=== PATIENT | male | born 1980 ===

== ENCOUNTER 2020-10-14 14:30 | Emergency (ER) | payer OTHER, SELFPAY ==
--- NOTE | ~2020-10-14 | XR_ITS ---
EXAMINATION: XR CHEST CLINICAL INFORMATION: Dizziness COMPARISON: Chest 04/19/2011 TECHNIQUE: Frontal view of the chest was obtained. FINDINGS: No significant abnormality is noted involving the heart, lungs, mediastinum, bony thorax or soft tissues. XR/XR chest 1V IMPRESSION: Unremarkable chest examination.
[2020-10-14 15:18] VITALS: BP 111/77; PULSE 108; RESP 18; TEMP 36.4; O2SAT 96; BMI 30.7
--- NOTE | 2020-10-14 15:24 | ECG_ITS ---
Test Reason : CHEST PAIN Blood Pressure : / mmHG Vent. Rate : 093 BPM Atrial Rate : 093 BPM P-R Int : 138 ms QRS Dur : 094 ms QT Int : 352 ms P-R-T Axes : 059 091 033 degrees QTc Int : 437 ms Normal sinus rhythm Rightward axis Borderline ECG When compared with ECG of 07-MAR-2012 15:10, Vent. rate has increased BY 38 BPM QT has lengthened Referred By: Generic ED Physician Electronically Signed By:Delta Stephens
[2020-10-14 16:11] VITALS: BP 113/79; PULSE 89; RESP 16; TEMP 36.7; O2SAT 98
[2020-10-14 16:15] LABS: MANUAL DIFF FLAG NO
[2020-10-14 16:16] LABS: Basophils Percent Auto 0.4 % (0-2); Hematocrit 43.9 % (42-52); Hemoglobin 14.7 g/dl (14.0-18.0); Imm Gran Abs Auto 0.04 X10*3/uL (0.00-0.03); Imm Gran Pct Auto 0.4 % (0.0-0.4); Lymphocytes Absolute Auto 1.3 X10*3/uL (1.2-4.9); Lymphocytes Percent Auto 14.2 % (20-40); Mean Corpuscular HGB Conc 33.5 g/dl (31.0-36.0); Mean Corpuscular Hemoglobin 28.1 pg (27.0-33.0); Mean Corpuscular Volume 83.8 fL (80-98); Mean Platelet Volume 11.5 fL (9.4-12.4); Monocytes Absolute Auto 0.5 X10*3/uL (0.1-1.2); Monocytes Percent Auto 5.7 % (2-11); Neutrophils Absolute Auto 7.3 X10*3/uL (2.0-8.3); Neutrophils Percent Auto 79.3 % (45-73); Platelet Count 204 X10*3/uL (160-400); Red Blood Count 5.24 X10*6/uL (4.60-5.80); Red Cell Distribution Width 12.6 % (11.0-16.0); White Blood Count 9.2 X10*3/uL (4.8-10.8)
[2020-10-14] MEDS: 0.9 % Sodium Chloride 1,000 ML 999 ML IV ×4 (16:28→17:52)
[2020-10-14 16:40] LABS: INTERNATIONAL NORM RATIO 1.1 (0.9-1.1); Prothrombin Time 12.2 SEC (9.9-13.0)
[2020-10-14 16:43] LABS: Partial Thromboplastin Time 37.7 SEC (24.1-38.0)
[2020-10-14 16:51] LABS: Anion Gap 17 (12-20); Blood Urea Nitrogen 9 mg/dL (9-16); Calcium 9.2 mg/dL (8.4-10.2); Carbon Dioxide 24 mmol/L (22-29); Chloride 99 mmol/L (96-108); Creatinine Clr Calc Pharmacy 98.9; Estimated Glomerular Filt Rate > 60; Glucose Random 641 mg/dL (60-115); Potassium 4.4 mmol/L (3.3-5.1); Sodium 136 mmol/L (135-145)
[2020-10-14 16:57] LABS: Troponin-I High Sensitivity < 3.5 ng/L (<3.5-35.0)
[2020-10-14 16:58] LABS: Acetone, serum QL Negative (Negative)
--- NOTE | 2020-10-14 17:23 | ED.DIZZY ---
HPI - Dizziness General Chief Complaint: Dizziness Stated Complaint: hbs, dizziness Time Seen by Provider: 10/14/20 16:10 Source: patient Mode of arrival: ambulatory Limitations: no limitations History of Present Illness HPI Narrative: Patient presents to the ED for dizziness and hyperglycemia. Patient admits to missing insulin doses past couple days. Patient denies any chest pain, shortness of breath, coughing, fever, chills, slurred speech, facial droop, paralysis of extremities, or loss of vision. Related Data Allergies Allergy/AdvReac Type Severity Reaction Status Date / Time onion [Onion] Allergy Unknown ITCHING Verified 10/14/20 15:17 [email or web address] Allergy Hives Verified 10/14/20 15:17 SEAFOOD Allergy Unknown ITCHING Uncoded 12/17/19 16:53 Review of Systems Review of Systems: Yes all other systems are reviewed and are negative Constitutional: Constitutional: Reports as per HPI and Reports no additional constitutional complaints Eyes: Eyes: Reports as per HPI and Reports no additional eye complaints ENT: Reports system reviewed and no additional complaints, except as documented and Reports as per HPI Cardiovascular: Cardiovascular: Reports as per HPI and Reports no additional cardiovascular complaints Respiratory: Respiratory: Reports as per HPI and Reports no additional respiratory complaints Gastrointestinal: Gastrointestinal: Reports as per HPI and Reports no additional gastrointestinal complaints Genitourinary: Genitourinary: Reports no additional male genitourinary complaints and Reports as per HPI Musculoskeletal: Musculoskeletal: Reports no additional musculoskeletal complaints and Reports as per HPI Neurologic: Reports system reviewed and no additional complaints, except as documented and Reports as per HPI Psychiatric: Psychiatric: Reports no additional psychiatric complaints and Reports as per HPI Endocrine: Endocrine: Reports no additional endocrine complaints and Reports as per HPI Comments: Dizziness [facility] Past Medical History Medical History (Updated 10/14/20 @ 19:16 by RAIN Snider) Asthma Diabetes Social History Social History Alcohol intake: never Patient Tobacco Use Status: Never used Tobacco Use of substances other than those prescribed or required for medical reasons: No Advance Directives: No Advance Directives Information Provided: No Physical Exam Vital Signs: Vital Signs: Last Vital Signs Temp 98.0 F 10/14/20 16:11 Pulse 89 10/14/20 16:11 Resp 16 10/14/20 16:11 BP 113/79 10/14/20 16:11 Pulse Ox 98 10/14/20 16:11 Body Mass Index 30.7 Const: General: cooperative, healthy appearing, comfortable, no acute distress, well developed, alert, awake and Physically active; No lethargic Orientation/consciousness: patient oriented x3 and No lethargic HENMT: Head: Yes normal to inspection, Yes No palpable skull fracture present, Yes normocephalic and Yes atraumatic Eyes: General: appearance normal, both eyes and all related structures Neck: Neck: Yes normal visual inspection, Yes full ROM, Yes no lymphadenopathy, Yes no meningeal signs, Yes trachea midline, Yes supple and No tender Chest: Chest palpation & inspection: normal inspection of the chest and normal palpation of entire chest wall Resp: Effort & Inspection: normal respiratory effort and able to speak in complete sentences Auscultation: clear to auscultation bilaterally Cardio: Jugular venous distension: no JVD Heart sounds: S1 normal heart sound present and S2 normal heart sound present GI: Inspection: Yes normal to inspection and No abdominal wall ecchymosis Palpation (GI): Soft to palpation, not firm, nontender, no guarding and not rigid : General: No CVA tenderness and Yes no CVA tenderness Back/Spine/Pelvis: Back: no CVA tenderness, No CVA tenderness and No back tenderness Skin: General skin exam: no rashes or lesions noted and elasticity normal Neuro: Other: Negative facial droop. Negative slurred speech. Negative pronator drift. All extremities equal strength 5+. [id number] rapid head movement intact. Negative Romberg General: patient oriented x3, gait normal, no meningeal signs and CN's II-XI intact bilaterally Cranial nerves: Yes CN's II-XII intact bilaterally Extrem: General: Yes normal to inspection and Yes full ROM Psych: Appearance: grossly normal, well kempt and not disheveled Course Course Course Narrative: Patient will have medical evaluation evaluate for DKA. Reevaluation(s) Reevaluation #1: Patient not in DKA. But patient hyperglycemic at glucose 641. Troponin negative. EKG negative. Will give 4 L of fluids and IV insulin. Time: 17:30 Reevaluation #2: Patient's hypoglycemia resolved. Patient is safe for discharge. Patient educated and being compliant with insulin. Time: 19:14 MDM - Dizziness MDM Narrative Medical decision making narrative: Hyperglycemia Lab Data Result diagrams: 10/14/20 16:11 10/14/20 16:11 Labs: Lab Results 10/14/20 10/14/20 10/14/20 Range/Units 16:11 16:11 16:11 WBC 9.2 (4.8-10.8) X10*3/uL RBC 5.24 (4.60-5.80) X10*6/uL Hgb 14.7 (14.0-18.0) g/dl Hct 43.9 (42-52) % MCV 83.8 (80-98) fL MCH 28.1 (27.0-33.0) pg MCHC 33.5 (31.0-36.0) g/dl RDW 12.6 (11.0-16.0) % Plt Count 204 (160-400) X10*3/uL MPV 11.5 (9.4-12.4) fL Immature Gran % (Auto) 0.4 (0.0-0.4) % Neut % (Auto) 79.3 H (45-73) % Lymph % (Auto) 14.2 L (20-40) % Karnes % (Auto) 5.7 (2-11) % Eos % (Auto) 0.0 (0-4) % Baso % (Auto) 0.4 (0-2) % Lymph # (Auto) 1.3 (1.2-4.9) X10*3/uL Karnes # (Auto) 0.5 (0.1-1.2) X10*3/uL Eos # (Auto) 0.0 (0.0-0.4) X10*3/uL Baso # (Auto) 0.0 (0.0-0.2) X10*3/uL Abs Immat Gran (auto) 0.04 H (0.00-0.03) X10*3/uL Absolute Neuts (auto) 7.3 (2.0-8.3) X10*3/uL Absolute Nucleated RBC 0.000 (0.0-0.012) X10*3/uL Nucleated RBC % (auto) 0.0 (0.0-0.2) /100WBC PT (9.9-13.0) SEC INR (0.9-1.1) APTT (24.1-38.0) SEC Sodium 136 (135-145) mmol/L Potassium 4.4 (3.3-5.1) mmol/L Chloride 99 (96-108) mmol/L Carbon Dioxide 24 (22-29) mmol/L Anion Gap 17 (12-20) BUN 9 (9-16) mg/dL Creatinine 1.17 (0.5-1.4) mg/dL Estim Creat Clear Calc 98.9 Estimated GFR > 60 POC Glucose (60-115) mg/dL Random Glucose 641 H* (60-115) mg/dL Calcium 9.2 (8.4-10.2) mg/dL Troponin I High Sens < 3.5 (<3.5-35.0) ng/L Urine Color Urine Appearance Urine pH (5.0-8.0) Ur Specific [place] (1.005-1.025) Urine Protein (NEG-TRACE) MG/DL Urine Glucose (UA) (NEG) MG/DL Urine Ketones (NEG) MG/DL Urine Blood (NEG) Urine Nitrite (NEG) Ur Leukocyte Esterase (NEG) Urine RBC (0) /HPF Urine WBC (0-4) /HPF Ur Squamous Epith Cells /LPF Urine Bacteria /LPF Acetone, Qual (Negative) 10/14/20 10/14/20 10/14/20 Range/Units 16:26 16:26 17:49 WBC (4.8-10.8) X10*3/uL RBC (4.60-5.80) X10*6/uL Hgb (14.0-18.0) g/dl Hct (42-52) % MCV (80-98) fL MCH (27.0-33.0) pg MCHC (31.0-36.0) g/dl RDW (11.0-16.0) % Plt Count (160-400) X10*3/uL MPV (9.4-12.4) fL Immature Gran % (Auto) (0.0-0.4) % Neut % (Auto) (45-73) % Lymph % (Auto) (20-40) % Karnes % (Auto) (2-11) % Eos % (Auto) (0-4) % Baso % (Auto) (0-2) % Lymph # (Auto) (1.2-4.9) X10*3/uL Karnes # (Auto) (0.1-1.2) X10*3/uL Eos # (Auto) (0.0-0.4) X10*3/uL Baso # (Auto) (0.0-0.2) X10*3/uL Abs Immat Gran (auto) (0.00-0.03) X10*3/uL Absolute Neuts (auto) (2.0-8.3) X10*3/uL Absolute Nucleated RBC (0.0-0.012) X10*3/uL Nucleated RBC % (auto) (0.0-0.2) /100WBC PT 12.2 (9.9-13.0) SEC INR 1.1 (0.9-1.1) APTT 37.7 (24.1-38.0) SEC Sodium (135-145) mmol/L Potassium (3.3-5.1) mmol/L Chloride (96-108) mmol/L Carbon Dioxide (22-29) mmol/L Anion Gap (12-20) BUN (9-16) mg/dL Creatinine (0.5-1.4) mg/dL Estim Creat Clear Calc Estimated GFR POC Glucose 340 H (60-115) mg/dL Random Glucose (60-115) mg/dL Calcium (8.4-10.2) mg/dL Troponin I High Sens (<3.5-35.0) ng/L Urine Color Urine Appearance Urine pH (5.0-8.0) Ur Specific [place] (1.005-1.025) Urine Protein (NEG-TRACE) MG/DL Urine Glucose (UA) (NEG) MG/DL Urine Ketones (NEG) MG/DL Urine Blood (NEG) Urine Nitrite (NEG) Ur Leukocyte Esterase (NEG) Urine RBC (0) /HPF Urine WBC (0-4) /HPF Ur Squamous Epith Cells /LPF Urine Bacteria /LPF Acetone, Qual Negative (Negative) 10/14/20 10/14/20 Range/Units 18:34 18:46 WBC (4.8-10.8) X10*3/uL RBC (4.60-5.80) X10*6/uL Hgb (14.0-18.0) g/dl Hct (42-52) % MCV (80-98) fL MCH (27.0-33.0) pg MCHC (31.0-36.0) g/dl RDW (11.0-16.0) % Plt Count (160-400) X10*3/uL MPV (9.4-12.4) fL Immature Gran % (Auto) (0.0-0.4) % Neut % (Auto) (45-73) % Lymph % (Auto) (20-40) % Karnes % (Auto) (2-11) % Eos % (Auto) (0-4) % Baso % (Auto) (0-2) % Lymph # (Auto) (1.2-4.9) X10*3/uL Karnes # (Auto) (0.1-1.2) X10*3/uL Eos # (Auto) (0.0-0.4) X10*3/uL Baso # (Auto) (0.0-0.2) X10*3/uL Abs Immat Gran (auto) (0.00-0.03) X10*3/uL Absolute Neuts (auto) (2.0-8.3) X10*3/uL Absolute Nucleated RBC (0.0-0.012) X10*3/uL Nucleated RBC % (auto) (0.0-0.2) /100WBC PT (9.9-13.0) SEC INR (0.9-1.1) APTT (24.1-38.0) SEC Sodium (135-145) mmol/L Potassium (3.3-5.1) mmol/L Chloride (96-108) mmol/L Carbon Dioxide (22-29) mmol/L Anion Gap (12-20) BUN (9-16) mg/dL Creatinine (0.5-1.4) mg/dL Estim Creat Clear Calc Estimated GFR POC Glucose 269 H (60-115) mg/dL Random Glucose (60-115) mg/dL Calcium (8.4-10.2) mg/dL Troponin I High Sens (<3.5-35.0) ng/L Urine Color COLORLESS Urine Appearance CLEAR Urine pH 5.5 (5.0-8.0) Ur Specific [place] 1.015 (1.005-1.025) Urine Protein NEG (NEG-TRACE) MG/DL Urine Glucose (UA) >=1000 H (NEG) MG/DL Urine Ketones NEG (NEG) MG/DL Urine Blood NEG (NEG) Urine Nitrite NEG (NEG) Ur Leukocyte Esterase NEG (NEG) Urine RBC 1-4 (0) /HPF Urine WBC 0-2 (0-4) /HPF Ur Squamous Epith Cells NONE /LPF Urine Bacteria NONE /LPF Acetone, Qual (Negative) ECG Data Interpretation: Normal sinus rhythm. Ventricular rate 93. Pr interval 138. QRS 94. QTC 4 37. Negative STEMI Discharge Plan Discharge Clinical Impression: Acute hyperglycemia Patient Disposition: Home, Self-Care Instructions: Diabetic Hyperglycemia (ED) Additional Instructions: Return to the ED for any abdominal pain, nausea, vomiting, fever, chills, chest pain, shortness of breath, dizziness, headache, slurred speech, loss of vision, paralysis of extremities, or any other concerning symptoms. Your hyperglycemia resolved. UA not in DKA. Urine negative for infection. EKG and troponin negative for heart attack. Your electrolytes came back normal Print Language: Thai
[2020-10-14] MEDS: Insulin Regular, Human 100 UNIT/ML 3 ML VIAL 10 UNIT IVPUSH (17:52)
[2020-10-14 17:53] LABS: Glucose, Whole Blood 340 mg/dL (60-115)
[2020-10-14 18:49] LABS: Glucose, Whole Blood 269 mg/dL (60-115)
[2020-10-14 18:55] LABS: Glucose Urine UA >=1000 MG/DL (NEG); Leukocyte Esterase Urine NEG (NEG); Nitrite Urine NEG (NEG); PH 5.5 (5.0-8.0); Specific Gravity - Urine 1.015 (1.005-1.025); Urine Blood NEG (NEG); Urine Ketones NEG (NEG); Urine Protein NEG (NEG-TRACE)
[2020-10-14 18:56] LABS: Appearance Urine CLEAR; Color Urine COLORLESS
[2020-10-14 19:09] LABS: WBC Urine 0-2 /HPF (0-4)
== END 2020-10-14 19:30 | disposition home or self-care (01) ==
PROVIDERS: Physician Assistant; Emergency Provider Emergency Medicine
DX: E11.65 Type 2 diabetes mellitus with hyperglycemia (principal); Z79.4 Long term (current) use of insulin; Z91.14 Patient's other noncompliance with medication regimen
CPT/HCPCS: 36415; 71045; 80048; 81001; 82009; 82947; 84484; 85025; 85610; 85730; 93005; 96361; 96374; 99284; 99285

== ENCOUNTER 2022-04-26 21:01 | Emergency (ER) | payer OTHER, SELFPAY ==
--- NOTE | ~2022-04-26 | XR_ITS ---
EXAMINATION: XR LUMBOSACRAL SPINE CLINICAL INFORMATION: Reason for Exam s/p fall COMPARISON: Lumbar spine radiographs 01/25/2012 TECHNIQUE: 3 views of the lumbar spine FINDINGS: 5 nonrib-bearing lumbar-type vertebral bodies. Vertebral body heights are maintained. Alignment is maintained. Mild multilevel degenerative disc disease with minimal loss of disc space height, facet arthropathy and disc osteophyte complexes. Paravertebral soft tissues are unremarkable. XR/XR lumbar spine 2-3V IMPRESSION: * No acute osseous abnormality. Mild spondylosis of the lumbar spine, as above detailed.
[2022-04-26 21:10] VITALS: BP 125/77; PULSE 78; RESP 18; TEMP 36.4; O2SAT 95; BMI 30.7
--- NOTE | 2022-04-26 22:42 | ED.BACK ---
HPI - Back Pain/Injury General Chief Complaint: Back Pain/Injury Stated Complaint: lower back pain Time Seen by Provider: 04/26/22 22:42 Source: patient Mode of arrival: ambulatory Limitations: no limitations History of Present Illness HPI Narrative: Patient history of lower back pain status post steroid injection about 3 years ago since then been doing fine not requiring any pain medication. Today patient's sleep while getting of the car and had the lower back again complaining of increased pain difficulty in ambulation no paresthesia or weakness of the leg no bladder or bowel involvement Related Data Previous Rx's Medication Instructions Recorded cyclobenzaprine 10 mg tablet 10 mg PO Q8H #20 tabs 04/27/22 oxycodone-acetaminophen 5 mg-325 1 tab PO Q6H PRN pain #20 tabs 04/27/22 mg tablet (Percocet) prednisone 20 mg tablet 40 mg PO DAILY #10 tabs 04/27/22 Allergies Allergy/AdvReac Type Severity Reaction Status Date / Time onion [Onion] Allergy Unknown ITCHING Verified 10/14/20 15:17 [email or web address] Allergy Hives Verified 10/14/20 15:17 SEAFOOD Allergy Unknown ITCHING Uncoded 12/17/19 16:53 Review of Systems Review of Systems: Yes all other systems are reviewed and are negative [facility] Past Medical History Medical History Asthma Diabetes Social History Social History Alcohol intake: never Patient Tobacco Use Status: Never used Tobacco Advance Directives: No Advance Directives Information Provided: No Physical Exam Vital Signs: Vital Signs: Last Vital Signs Temp 97.7 F 04/27/22 01:39 Pulse 67 04/27/22 01:39 Resp 18 04/27/22 01:39 BP 111/63 04/27/22 01:39 Pulse Ox 97 04/27/22 01:39 O2 Del Method 04/27/22 01:39 BMI result Body Mass Index 30.7 Appearance: Alert. Oriented X3. No acute distress. Eyes: PERRLA, No Nystagmus ENT: Pharynx normal. Oral Mucosa moist Neck: Normal inspection. Neck supple. CVS: Normal heart rate and rhythm. Pulses normal. Respiratory: No respiratory distress. Equal air entry bilateral, no wheezing/rales/rhonchi Abdomen: Soft and nontender. Bowel sounds are present, no mass palpable, no CVA tenderness Skin: Skin warm and dry. Normal skin color. Normal skin turgor. Back: diffuse L umbar spine diffuse tenderness++ Extremities: No lower extremity edema. No calf tenderness Neuro: Oriented X 3. No motor deficit. Medications Administered Discontinued Medications Generic Name Dose Route Start Last Admin Trade Name Freq PRN Reason Stop Dose Admin Cyclobenzaprine HCl 10 mg 04/27/22 00:31 04/27/22 00:50 Cyclobenzaprine Hcl 10 Mg Tablet PO 04/27/22 00:32 10 mg ONCE ONE Administration Dexamethasone Sodium Phosphate 10 mg 04/27/22 00:31 04/27/22 00:49 Dexamethasone Sod Phosphate 10 Mg/Ml Vial IVPUSH 04/27/22 00:32 10 mg ONCE ONE Administration Ketorolac Tromethamine 30 mg 04/26/22 23:07 04/26/22 23:16 Ketorolac Tromethamine 30 Mg/Ml Vial IVPUSH 04/26/22 23:08 30 mg ONCE ONE Administration Morphine Sulfate 4 mg 04/26/22 23:07 04/26/22 23:17 Morphine Sulfate 4 Mg/Ml Cartridge IVPUSH 04/26/22 23:08 4 mg ONCE ONE Administration Protocol Ondansetron HCl 4 mg 04/26/22 23:07 04/26/22 23:17 Ondansetron Hcl 4 Mg/2 Ml Vial IVPUSH 04/26/22 23:08 4 mg ONCE ONE Administration Oxycodone HCl 10 mg 04/27/22 00:31 04/27/22 00:50 Oxycodone Hcl Immed Release 5 Mg Tablet PO 04/27/22 00:32 10 mg ONCE ONE Administration Discharge Plan Discharge Clinical Impression: Strain of lumbar region Patient Disposition: Home, Self-Care Instructions: Acute Low Back Pain (ED) Additional Instructions: Take pain medication muscle relaxants advised Apply ice pack Follow with PCP Prescriptions: New cyclobenzaprine 10 mg tablet 10 mg PO Q8H Qty: 20 0RF prednisone 20 mg tablet 40 mg PO DAILY Qty: 10 0RF oxycodone-acetaminophen [Percocet] 5-325 mg tablet 1 tab PO Q6H PRN (Reason: pain) Qty: 20 0RF Rx Instructions: Partial Fill upon patient request. Stand Alone Forms: Work/School Release Discharge Date/Time: 04/27/22 01:57
[2022-04-26 23:04] VITALS: BP 114/71; PULSE 66; RESP 12; TEMP 36.4; O2SAT 98
--- NOTE | 2022-04-26 23:04 | PC.NURSE ---
Pt aox4. Reports getting out of the car and hearing a pop on the back. Pt reports not falling. Pain 01/08. VSEugenia. at bedside.
[2022-04-26] MEDS: Ketorolac Tromethamine 30 MG/ML VIAL IVPUSH (23:16)
[2022-04-26] MEDS: Morphine Sulfate 4 MG/ML CARTRIDGE IVPUSH (23:17)
[2022-04-26] MEDS: ondansetron HCL 4 MG/2 ML VIAL IVPUSH (23:17)
[2022-04-27] MEDS: dexAMETHasone sod phosphate 10 MG/ML VIAL IVPUSH (00:49)
[2022-04-27] MEDS: oxyCODONE HCl Immed Release 5 MG TABLET 10 MG PO (00:50)
[2022-04-27] MEDS: Cyclobenzaprine HCl 10 MG TABLET PO (00:50)
[2022-04-27 01:39] VITALS: BP 111/63; PULSE 67; RESP 18; TEMP 36.5; O2SAT 97
--- NOTE | 2022-04-27 01:56 | PC.NURSE ---
Pt aox4 in no apparent distress. Discharge instructions reviewed with pt. Pt verbalizes understanding.
== END 2022-04-27 01:57 | disposition home or self-care (01) ==
PROVIDERS: Emergency Provider Internal Medicine
DX: M54.50 Low back pain, unspecified (principal); Z79.899 Other long term (current) drug therapy
CPT/HCPCS: 72100; 96374; 96375; 99284; J1100; J1885; J2270; J2405

== ENCOUNTER 2022-04-28 22:44 | Emergency (ER) | payer OTHER, SELFPAY ==
[2022-04-28 22:49] VITALS: BP 143/80; PULSE 79; RESP 18; TEMP 36.6; O2SAT 97; BMI 30.7
--- NOTE | 2022-04-28 23:08 | ED.BACK ---
HPI - Back Pain/Injury General Chief Complaint: Back Pain/Injury Stated Complaint: Lower back pain Time Seen by Provider: 04/28/22 23:08 Source: patient Mode of arrival: ambulatory Limitations: no limitations History of Present Illness HPI Narrative: 42-year-old male presents for several weeks of back pain, was evaluated on with a negative workup. Patient was given prednisone, oxycodone and Flexeril, which he has been using, stating that it has not alleviated his pain. Patient is requesting an MRI, and feels that he cannot function properly at work because of the pain. MD elicited complaint: back pain and back injury Onset (ago): week(s) Timing: constant Severity: moderate Similar Symptoms Previously: Yes Quality: aching and spasming Location: lumbar spine Exacerbating factors: movement, walking and lifting Relieving factors: none Associated symptoms: denies other symptoms Treatments prior to arrival: NSAIDS and prescription analgesics Work related injury: No Related Data Previous Rx's Medication Instructions Recorded cyclobenzaprine 10 mg tablet 10 mg PO Q8H #20 tabs 04/27/22 oxycodone-acetaminophen 5 mg-325 1 tab PO Q6H PRN pain #20 tabs 04/27/22 mg tablet (Percocet) prednisone 20 mg tablet 40 mg PO DAILY #10 tabs 04/27/22 Allergies Allergy/AdvReac Type Severity Reaction Status Date / Time onion [Onion] Allergy Unknown ITCHING Verified 10/14/20 15:17 [email or web address] Allergy Hives Verified 10/14/20 15:17 SEAFOOD Allergy Unknown ITCHING Uncoded 12/17/19 16:53 Review of Systems Review of Systems: Constitutional: No Fever, No Chills Cardiovascular: No Chest Pain, No SOB Respiratory: No Cough, No Dyspnea Gastrointestinal: No Nausea, No Vomiting, No Diarrhea, No abdominal Pain Genitourinary: No Dysuria, No Hematuria Musculoskeletal: positive lumbar back pain, No Myalgias, No Joint Swelling Neuro: No Weakness, No Numbness, No Paresthesias, No cauda equina, No Dizziness, No Headache Yes all other systems are reviewed and are negative [facility] Past Medical History Attestation statement: The following information was validated with the patient. Source: old records reviewed Medical History Asthma Diabetes Social History Social History Alcohol intake: never Patient Tobacco Use Status: Never used Tobacco Advance Directives: No Advance Directives Information Provided: Yes Physical Exam Vital Signs: Vital Signs: Last Vital Signs Temp 97.9 F 04/28/22 22:49 Pulse 79 04/28/22 22:49 Resp 18 04/28/22 22:49 BP 143/80 H 04/28/22 22:49 Pulse Ox 97 04/28/22 22:49 O2 Del Method 04/28/22 22:49 BMI result Body Mass Index 30.7 Appearance: Alert. Oriented X3. No acute distress. Eyes: Pupils equal, round and reactive to light. Skin: Skin warm and dry. Normal skin color. Normal skin turgor. Extremities: No lower extremity edema. Gait well-balanced well coordinated. Neuro: No motor deficit. No sensory deficit. Cranial nerves 2-12 intact. Course Course Course Narrative: 42-year-old male presents for continued lower back pain. He was evaluated on with a negative workup. He was given prescriptions for prednisone, oxycodone and Flexeril which he has been taking with poor effect. Patient is requesting an MRI. I did discuss in detail, that this MRI could not occur today and that this was not an emergent situation. I did ask this patient follow-up with his primary care physician, which is in [place], for a physical therapy referral. Patient does understand that lower back pain is a chronic issue and will require constant upkeep. Patient has no fevers, no indication of cauda equina, is ambulatory with an even steady gait. Afebrile and nontoxic. Plan of care is to discharge home and have patient follow-up with primary. Medications Administered Discontinued Medications Generic Name Dose Route Start Last Admin Trade Name Freq PRN Reason Stop Dose Admin Cyclobenzaprine HCl 10 mg 04/28/22 23:18 04/28/22 23:37 Cyclobenzaprine Hcl 10 Mg Tablet PO 04/28/22 23:19 10 mg ONCE ONE Administration Ketorolac Tromethamine 60 mg 04/28/22 23:18 04/28/22 23:36 Ketorolac Tromethamine 60 Mg/2 Ml Vial IM 04/28/22 23:19 60 mg ONCE ONE Administration Medical Decision Making Differential Diagnosis Differential Diagnoses: The differential diagnosis associated with the presentation includes Lumbar back pain, muscle spasm Discharge Plan Discharge Clinical Impression: Strain of lumbar region Patient Disposition: Home, Self-Care Instructions: Muscle Strain (ED), Back Pain (ED), R.I.C.E. Treatment (ED), Lower Back Exercises (ED) Additional Instructions: You were evaluated for lower back pain. Please follow-up with primary care physician for physical therapy referral. Thank you for choosing this emergency department for evaluation. Please follow-up with primary care physician as needed. Return to the emergency department for any new, concerning, or worsening symptoms. Prescriptions: No Action cyclobenzaprine 10 mg tablet 10 mg PO Q8H Qty: 20 0RF prednisone 20 mg tablet 40 mg PO DAILY Qty: 10 0RF oxycodone-acetaminophen [Percocet] 5-325 mg tablet 1 tab PO Q6H PRN (Reason: pain) Qty: 20 0RF Rx Instructions: Partial Fill upon patient request. Stand Alone Forms: Work/School Release Interventions: ED Discharge Assessment Last Done: 04/28/22 23:36 Discharge Date/Time: 04/28/22 23:44
[2022-04-28] MEDS: Ketorolac Tromethamine 60 MG/2 ML VIAL IM (23:36)
[2022-04-28] MEDS: Cyclobenzaprine HCl 10 MG TABLET PO (23:37)
== END 2022-04-28 23:44 | disposition home or self-care (01) ==
PROVIDERS: Emergency Provider Internal Medicine
DX: S39.012A Strain of muscle, fascia and tendon of lower back, initial encounter (principal); X58.XXXA Exposure to other specified factors, initial encounter; E11.9 Type 2 diabetes mellitus without complications; Y93.9 Activity, unspecified; Y92.9 Unspecified place or not applicable; Y99.9 Unspecified external cause status
CPT/HCPCS: 96372; 99283; 99284; J1885

== ENCOUNTER 2022-05-07 15:14 | Emergency (ER) | payer OTHER, SELFPAY ==
--- NOTE | ~2022-05-07 | XR_ITS ---
EXAMINATION: XR LUMBOSACRAL SPINE CLINICAL INFORMATION: Back pain COMPARISON: Lumbar spine 04/26/2022 TECHNIQUE: Three views of the lumbosacral spine. FINDINGS: Mild multilevel degenerative spondylosis of the lumbar spine with vertebral endplate spur of the L2, L3 and L4 vertebrae. Mild facet joint arthrosis at lower lumbar spine. No fracture or bone destruction. No spondylolysis or spondylolisthesis. No interval change since prior study 04/26/2022. XR/XR lumbar spine 2-3V IMPRESSION: No acute abnormality. Mild degenerative spondylosis of lumbar spine.
[2022-05-07 16:55] VITALS: BP 132/94; PULSE 84; RESP 18; TEMP 36.6; O2SAT 96; BMI 30.7
--- NOTE | 2022-05-07 16:57 | ED_ITS ---
HPI - General Adult General Chief complaint: Back Pain/Injury <RAIN Snider - Last Filed: 05/07/22 19:50> Stated complaint: severe back pain <RAIN Snider Last Filed: 05/07/22 19:50> Time Seen by Provider: 05/07/22 18:17 <RAIN Snider - Last Filed: 05/07/22 19:50> Source: patient <RAIN Tomlinson Last Filed: 05/08/22 10:28> Mode of arrival: ambulatory <RAIN Tomlinson Last Filed: 05/08/22 10:28> Limitations: no limitations <RAIN Tomlinson Last Filed: 05/08/22 10:28> History of Present Illness HPI narrative: Patient is a 42 year old assigned male at with no reported medical history presenting to the emergency department today with low back pain. Patient states that he turned the wrong way yesterday while on some stairs and ever since has had low back pain. Patient denies any dizziness, lightheadedness, abdominal pain, nausea, vomiting, fever, chills, blurry vision, double vision, loss of vision, chest pain, difficulty breathing, shortness of breath, night sweats, pain with urination, increased urinary frequency, increased urinary urgency, blood in his urine or stool, syncope or a near syncopal episode, recent trauma or falls, bowel incontinence, bladder incontinence, bowel retention, bladder retention, or any other complaints at this time. <RAIN Tomlinson - Last Filed: 05/08/22 10:28> Onset (ago): day(s) (1) <RAIN Tomlinson Last Filed: 05/08/22 10:28> Location: back <RAIN Tomlinson Last Filed: 05/08/22 10:28> Radiation: non-radiation <RAIN Tomlinson Last Filed: 05/08/22 10:28> Severity: mild <RAIN Tomlinson Last Filed: 05/08/22 10:28> Severity scale (1-10): 2 <RAIN Tomlinson Last Filed: 05/08/22 10:28> Quality: aching and dull <RAIN Tomlinson Last Filed: 05/08/22 10:28> Pain Consistency: constant <RAIN Tomlinson - Last Filed: 05/08/22 10:28> Relieving factors: none <RAIN Tomlinson Last Filed: 05/08/22 10:28> Exacerbating factors: none <RAIN Tomlinson - Last Filed: 05/08/22 10:28> Associated symptoms: denies other symptoms <RAIN Tomlinson Last Filed: 05/08/22 10:28> Treatments prior to arrival: none <RAIN Tomlinson Last Filed: 05/08/22 10:28> Related Data Home medications: Previous Rx's Medication Instructions Recorded cyclobenzaprine 10 mg tablet 10 mg PO Q8H #20 tabs 04/27/22 oxycodone-acetaminophen 5 mg-325 1 tab PO Q6H PRN pain #20 tabs 04/27/22 mg tablet (Percocet) prednisone 20 mg tablet 40 mg PO DAILY #10 tabs 04/27/22 cyclobenzaprine 5 mg tablet 5 mg PO TID PRN muscle spasm 7 05/07/22 days #21 tabs prednisone 20 mg tablet 20 mg PO DAILY 7 days #7 tabs 05/07/22 <RAIN Snider Last Filed: 05/07/22 19:50> Allergies/adverse reactions: Allergies Allergy/AdvReac Type Severity Reaction Status Date / Time onion [Onion] Allergy Unknown ITCHING Verified 10/14/20 15:17 [email or web address] Allergy Hives Verified 10/14/20 15:17 SEAFOOD Allergy Unknown ITCHING Uncoded 12/17/19 16:53 <RAIN Snider - Last Filed: 05/07/22 19:50> Review of Systems Constitutional: Constitutional: Reports no additional constitutional complaints, Denies chills, Denies fever(s) and Denies night sweats <RAIN Tomlinson Last Filed: 05/08/22 10:28> Eyes: Eyes: Reports no additional eye complaints, Denies blurry vision, Denies change in vision, Denies diplopia, Denies eye discharge, Denies loss of vision and Denies eye pain <RAIN Tomlinson Last Filed: 05/08/22 10:28> ENT: Denies dizziness <RAIN Tomlinson Last Filed: 05/08/22 10:28> Cardiovascular: Cardiovascular: Reports no additional cardiovascular complaints, Denies chest pain, Denies lightheadedness, Denies Loss of Consciousness and Denies dyspnea <RAIN Tomlinson Last Filed: 05/08/22 10:28> Respiratory: Respiratory: Reports no additional respiratory complaints and Denies dyspnea <RAIN Tomlinson Last Filed: 05/08/22 10:28> Gastrointestinal: Gastrointestinal: Reports no additional gastrointestinal complaints, Denies abdominal pain, Denies melena, Denies hematochezia, Denies change in bowel habits and Denies change in stool character <RAIN Tomlinson Last Filed: 05/08/22 10:28> Genitourinary: Genitourinary: Reports no additional male genitourinary complaints, Denies hematuria, Denies oliguria, Denies difficulty urinating, Denies dysuria, Denies urinary frequency, Denies urinary hesitancy, Denies urinary incontinence and Denies urinary urgency <RAIN Tomlinson Last Filed: 05/08/22 10:28> Musculoskeletal: Musculoskeletal: Reports no additional musculoskeletal complaints, Reports back pain, Denies numbness and Denies tingling <RAIN Tomlinson Last Filed: 05/08/22 10:28> Neurologic: Denies dizziness, Denies loss of vision, Denies numbness and Denies tingling <RAIN Tomlinson Last Filed: 05/08/22 10:28> Psychiatric: Psychiatric: Reports no additional psychiatric complaints <RAIN Tomlinson Last Filed: 05/08/22 10:28> Endocrine: Endocrine: Reports no additional endocrine complaints <RAIN Tomlinson Last Filed: 05/08/22 10:28> Hematologic/Lymphatic: Hematologic/Lymphatic: Reports no additional hematologic/lymphatic complaints <RAIN Tomlinson Last Filed: 05/08/22 10:28> Allergic/Immunologic: Allergic/Immunologic: Reports no additional allergic/immunologic complaints <RAIN Tomlinson Last Filed: 05/08/22 10:28> PMFSH Past Medical History Attestation statement: The following information was validated with the patient. <RAIN Tomlinson Last Filed: 05/08/22 10:28> Source: old records reviewed and nursing notes reviewed <RAIN Tomlinson - Last Filed: 05/08/22 10:28> Medical History: Medical History Asthma Diabetes <RAIN Snider - Last Filed: 05/07/22 19:50> Social History Social History: Social History Alcohol intake: never Patient Tobacco Use Status: Never used Tobacco Advance Directives: No Advance Directives Information Provided: Yes <RAIN Snider - Last Filed: 05/07/22 19:50> Physical Exam ED Vital Signs: Vital Signs - 24 hr 05/07/22 16:55 Temperature 98 F Pulse Rate 84 Respiratory Rate 18 Blood Pressure 132/94 H Pulse Oximetry 96 Oxygen Delivery Method Room Air BMI result Body Mass Index 30.7 <RAIN Snider - Last Filed: 05/07/22 19:50> Vital Signs - 24 hr 05/07/22 16:55 Temperature 98 F Pulse Rate 84 Respiratory Rate 18 Blood Pressure 132/94 H Pulse Oximetry 96 Oxygen Delivery Method Room Air BMI result Body Mass Index 30.7 <RAIN Tomlinson - Last Filed: 05/08/22 10:28> Vital Signs - 24 hr 05/07/22 16:55 Temperature 98 F Pulse Rate 84 Respiratory Rate 18 Blood Pressure 132/94 H Pulse Oximetry 96 Oxygen Delivery Method Room Air BMI result Body Mass Index 30.7 <Santo Murillo MD - Last Filed: 05/10/22 09:14> Const General: cooperative, no acute distress, alert and awake <RAIN Tomlinson - Last Filed: 05/08/22 10:28> Nutritional Appearance: well nourished <RAIN Tomlinson - Last Filed: 05/08/22 10:28> Orientation/consciousness: patient oriented x3 <RAIN Tomlinson - Last Filed: 05/08/22 10:28> Limitations: no limitations <RAIN Tomlinson - Last Filed: 05/08/22 10:28> HENMT Head: Yes normal to inspection and Yes atraumatic <RAIN Tomlinson - Last Filed: 05/08/22 10:28> Ears: hearing grossly normal bilaterally and external ears normal <Shellie PattersonRAIN - Last Filed: 05/08/22 10:28> General nose exam: Normal external nose present, no nasal discharge noted and no epistaxis <Shellie Patterson LA - Last Filed: 05/08/22 10:28> Face and sinus: Yes normal facial exam, No abrasion and No laceration <Shellie Workmanchucho LA - Last Filed: 05/08/22 10:28> Mouth: Normal oral and palatal mucosa present, no drooling and no muffled voice <Shellie Workmanchucho LA - Last Filed: 05/08/22 10:28> Eyes General: appearance normal, both eyes and all related structures <Shellie Workmanchucho LA - Last Filed: 05/08/22 10:28> Periorbital: periorbital findings normal <Shelliegeneva WorkmanRAIN rankin - Last Filed: 05/08/22 10:28> Eyelids: Yes eyelids normal <Shellie Workmanchucho LA - Last Filed: 05/08/22 10:28> Conjunctivae: conjunctivae normal <Shellie Workmanchucho LA - Last Filed: 05/08/22 10:28> Pupils: Equal, round and reactive pupils present <Shellie Workmanchucho LA - Last Filed: 05/08/22 10:28> EOM: EOMs intact bilaterally <Shellie Workmanchucho LA - Last Filed: 05/08/22 10:28> Neck Neck: Yes normal visual inspection, Yes full ROM and Yes no lymphadenopathy <Shellie RAIN Patterson - Last Filed: 05/08/22 10:28> Chest Chest palpation & inspection: normal inspection of the chest <Shellie Yesenia LA - Last Filed: 05/08/22 10:28> Resp Effort & Inspection: normal respiratory effort and able to speak in complete sentences <RAIN Tomlinson - Last Filed: 05/08/22 10:28> Auscultation: clear to auscultation bilaterally <Shellie RAIN Patterson - Last Filed: 05/08/22 10:28> Cardio Rate: regular rate <RAIN Tomlinson - Last Filed: 05/08/22 10:28> Rhythm: regular rhythm <Shellie Patterson PA - Last Filed: 05/08/22 10:28> GI Inspection: Yes normal to inspection <Shellie Patterson RAIN - Last Filed: 05/08/22 10:28> Palpation (GI): Soft to palpation, not firm, nontender, no guarding and not rigid <Shellie Patterson PA - Last Filed: 05/08/22 10:28> General: Yes no CVA tenderness <Shellie Patterson PA - Last Filed: 05/08/22 10:28> Back/Spine/Pelvis Back: no CVA tenderness <Shellie Patterson PA - Last Filed: 05/08/22 10:28> Cervical Spine: normal cervical lordosis and cervical ROM normal <Shellie Patterson RAIN - Last Filed: 05/08/22 10:28> Thoracic/Lumbar Spine: thoracic and lumbar spine normal to inspection and thoraco-lumbar ROM normal <Shellie PattersonRAIN - Last Filed: 05/08/22 10:28> Neuro General: patient oriented x3 and moves all extremities <Shellie Patterson LA - Last Filed: 05/08/22 10:28> Cranial nerves: Yes Equal, round and reactive pupils present <Shellie Patterson RAIN - Last Filed: 05/08/22 10:28> Cognition (Neuro): normal cognition <Shellie Patterson LA - Last Filed: 05/08/22 10:28> Motor exam (neuro): 5/5 motor strength present throughout <Shellie Patterson LA - Last Filed: 05/08/22 10:28> Sensory Exam: Normal double simultaneous stimulation for sensation <Shellie Patterson LA - Last Filed: 05/08/22 10:28> Coordination: [id number] test normal <Shellie Patterson PA - Last Filed: 05/08/22 10:28> Extrem General: Yes normal to inspection, Yes full ROM and Yes capillary refill normal <Shellie PattersonRAIN - Last Filed: 05/08/22 10:28> Psych Appearance: grossly normal <Shellie PattersonRAIN - Last Filed: 05/08/22 10:28> Mental Status: mental status grossly normal <Shellie Patterson, PA - Last Filed: 05/08/22 10:28> Affect: normal affect <RAIN Tomlinson Last Filed: 05/08/22 10:28> Attitude: cooperative <RAIN Tomlinson Last Filed: 05/08/22 10:28> Thought process: Normal thought process present <RAIN Tomlinson Last Filed: 05/08/22 10:28> Thought content: Normal thought content present <RAIN Tomlinson Last Filed: 05/08/22 10:28> Insight: Good insight present (Psych) <RAIN Tomlinson Last Filed: 05/08/22 10:28> Course Course Course Narrative: RME: patient presents to the ED for back pain. patient states he slipped and while trying to not fall he puled his lower back. patient denies falling to the ground. Posiive for lumbar tenderness on palpation. Xray ordered. denies any urinary/bowel incontinence. <RAIN Snider Last Filed: 05/07/22 19:50> Medications Administered Discontinued Medications Generic Name Dose Route Start Last Admin Trade Name Freq PRN Reason Stop Dose Admin Cyclobenzaprine HCl 5 mg 05/07/22 18:21 05/07/22 18:36 Cyclobenzaprine Hcl 5 Mg Tablet PO 05/07/22 18:22 5 mg ONCE ONE Administration Ketorolac Tromethamine 15 mg 05/07/22 18:21 05/07/22 18:36 Ketorolac Tromethamine 15 Mg/Ml Vial IM 05/07/22 18:22 15 mg ONCE ONE Administration Methylprednisolone Sodium Succinate 60 mg 05/07/22 18:21 05/07/22 18:36 Methylprednisolone Sod Succ 125 Mg/2 Ml Vial IM 05/07/22 18:22 60 mg ONCE ONE Administration <RAIN Snider Last Filed: 05/07/22 19:50> Medications Administered Discontinued Medications Generic Name Dose Route Start Last Admin Trade Name Freq PRN Reason Stop Dose Admin Cyclobenzaprine HCl 5 mg 05/07/22 18:21 05/07/22 18:36 Cyclobenzaprine Hcl 5 Mg Tablet PO 05/07/22 18:22 5 mg ONCE ONE Administration Ketorolac Tromethamine 15 mg 05/07/22 18:21 05/07/22 18:36 Ketorolac Tromethamine 15 Mg/Ml Vial IM 05/07/22 18:22 15 mg ONCE ONE Administration Methylprednisolone Sodium Succinate 60 mg 05/07/22 18:21 05/07/22 18:36 Methylprednisolone Sod Succ 125 Mg/2 Ml Vial IM 05/07/22 18:22 60 mg ONCE ONE Administration <RAIN Tomlinson - Last Filed: 05/08/22 10:28> Medications Administered Discontinued Medications Generic Name Dose Route Start Last Admin Trade Name Suzanna PRSarah Reason Stop Dose Admin Cyclobenzaprine HCl 5 mg 05/07/22 18:21 05/07/22 18:36 Cyclobenzaprine Hcl 5 Mg Tablet PO 05/07/22 18:22 5 mg ONCE ONE Administration Ketorolac Tromethamine 15 mg 05/07/22 18:21 05/07/22 18:36 Ketorolac Tromethamine 15 Mg/Ml Vial IM 05/07/22 18:22 15 mg ONCE ONE Administration Methylprednisolone Sodium Succinate 60 mg 05/07/22 18:21 05/07/22 18:36 Methylprednisolone Sod Succ 125 Mg/2 Ml Vial IM 05/07/22 18:22 60 mg ONCE ONE Administration <Santo Murillo MD - Last Filed: 05/10/22 09:14> Medical Decision Making Medical Decision Making MDM Narrative: Patient is a 42 year old assigned male at with no reported medical history presenting to the emergency department today with back pain. Patient's physical exam was unremarkable. Patient's lumbar spine x-ray showed no acute process. I explained my physical exam findings as well as all test results to the patient. I answered all questions asked by the patient. Patient received IM Toradol and PO Flexeril which he stated helped his symptoms significantly. I stressed the importance of the patient taking his medication as prescribed. I stressed the importance of the patient following up with his primary care provider and a field technical specialist. I stressed the importance of the patient returning to the emergency department immediately if his symptoms were to worsen or if he were to develop any dizziness, shortness of breath, difficulty breathing, chest pain, blurry vision, loss of vision, nausea, vomiting, abdominal pain, fever, chills, back pain, or any other complaints. Patient verbalized agreement and understanding with this treatment plan and discharge. <RAIN Tomlnison - Last Filed: 02/07/23 10:28> Differential Diagnosis Differential Diagnoses: The differential diagnosis associated with the presentation includes <RAIN Tomlinson - Last Filed: 05/08/22 10:28> low back pain, mechanical back pain <RAIN Tomlinson - Last Filed: 05/08/22 10:28> Lab Data MDM Lab Attestation statement: I reviewed the patient's lab results. <RAIN Tomlinson - Last Filed: 05/08/22 10:28> Radiology Impression Radiologist Impression: My interpretation is in agreement with the radiologist's impression of this imaging study. EXAMINATION: XR LUMBOSACRAL SPINE CLINICAL INFORMATION: Back pain COMPARISON: Lumbar spine 04/26/2022 TECHNIQUE: Three views of the lumbosacral spine. FINDINGS: Mild multilevel degenerative spondylosis of the lumbar spine with vertebral endplate spur of the L2, L3 and L4 vertebrae. Mild facet joint arthrosis at lower lumbar spine. No fracture or bone destruction. No spondylolysis or spondylolisthesis. No interval change since prior study 04/26/2022. XR/XR lumbar spine 2-3V IMPRESSION: No acute abnormality. Mild degenerative spondylosis of lumbar spine. Dictated By: Abilio Foster MD Signed By: Electronically signed by Abilio Foster MD 05/07/22 [id number] <RAIN Tomlinson - Last Filed: 05/08/22 10:28> Attestation Attending Attestation: I reviewed SENIOR UI WEB DEVELOPER/PA/Resident note, assessment and plan. I agree with the documentation, assessment and plan unless otherwise stated. <Santo Murillo MD - Last Filed: 05/10/22 09:14> Discharge Plan Discharge Clinical Impression: Strain of lumbar region <RAIN Snider - Last Filed: 05/07/22 19:50> Patient Disposition: Home, Self-Care <RAIN Snider - Last Filed: 05/07/22 19:50> Instructions: Low Back Strain (ED), Lower Back Exercises (ED) <RAIN Snider - Last Filed: 05/07/22 19:50> Additional Instructions: Follow up with your primary care provider. Return to the emergency department immediately if your symptoms worsen or if you develop any dizziness, shortness of breath, difficulty breathing, chest pain, blurry vision, loss of vision, nausea, vomiting, abdominal pain, fever, chills, back pain, or any other complaints. <RAIN Snider - Last Filed: 05/07/22 19:50> Prescriptions: New cyclobenzaprine 5 mg tablet 5 mg PO TID PRN (Reason: muscle spasm) 7 Days Qty: 21 0RF prednisone 20 mg tablet 20 mg PO DAILY 7 Days Qty: 7 0RF No Action cyclobenzaprine 10 mg tablet 10 mg PO Q8H Qty: 20 0RF prednisone 20 mg tablet 40 mg PO DAILY Qty: 10 0RF oxycodone-acetaminophen [Percocet] 5-325 mg tablet 1 tab PO Q6H PRN (Reason: pain) Qty: 20 0RF Rx Instructions: Partial Fill upon patient request. <RAIN Snider - Last Filed: 05/07/22 19:50> [place] [facility] [place] (Call to establish and follow up with a primary care provider. If you already have a primary care provider, please follow up with them. ) [facility] [place] Group] (Call to establish and follow up with a primary care provider. If you already have a primary care provider, loren sol follow up with them. ) [facility] [place] Group] (Call to establish and follow up with a primary care provider. If you already have a primary care provider, please follow up with them. ) [facility] [Provider Group] (Call to establish and follow up with a field technical specialist.) <RAIN Snider Last Filed: 05/07/22 19:50> Stand Alone Forms: Work/School Release <RAIN Snider Last Filed: 05/07/22 19:50> Interventions: ED Discharge Assessment Last Done: 05/07/22 19:19 <RAIN Snider - Last Filed: 05/07/22 19:50> Discharge Date/Time: 05/07/22 19:20 <RAIN Snider - Last Filed: 05/07/22 19:50> Print Language: Malagasy <RAIN Snider - Last Filed: 05/07/22 19:50>
[2022-05-07] MEDS: Cyclobenzaprine HCl 5 MG TABLET PO (18:36)
[2022-05-07] MEDS: Ketorolac Tromethamine 15 MG/ML VIAL IM (18:36)
[2022-05-07] MEDS: methylPREDNISolone Sod Succ 125 MG/2 ML VIAL 60 MG IM (18:36)
== END 2022-05-07 19:20 | disposition home or self-care (01) ==
PROVIDERS: Emergency Provider Emergency Medicine
DX: S39.012A Strain of muscle, fascia and tendon of lower back, initial encounter (principal); X50.1XXA Overexertion from prolonged static or awkward postures, initial encounter; E11.9 Type 2 diabetes mellitus without complications; Y93.89 Activity, other specified; Y92.9 Unspecified place or not applicable; Y99.9 Unspecified external cause status
CPT/HCPCS: 72100; 96372; 99283; 99284; J1885; J2930

== ENCOUNTER 2022-06-15 11:20 | Emergency (ER) | payer OTHER, SELFPAY ==
--- NOTE | ~2022-06-15 | XR_ITS ---
EXAMINATION: XR CHEST CLINICAL INFORMATION: Cough COMPARISON: October 14, 2020 TECHNIQUE: 2 views of the chest were obtained. FINDINGS: No significant abnormality is noted involving the heart, lungs, mediastinum, bony thorax or soft tissues. XR/XR chest 2V IMPRESSION: No acute disease.
[2022-06-15 11:34] VITALS: BP 117/68; PULSE 77; RESP 18; TEMP 36.6; O2SAT 98; BMI 30.7
--- NOTE | 2022-06-15 11:40 | PC.NURSE ---
patient a&ox3, vss, lungs in/ex wheezing, will notify provider and continue to monitor
[2022-06-15 11:51] VITALS: RESP 18
[2022-06-15 11:59] VITALS: O2SAT 99
--- NOTE | 2022-06-15 12:00 | PC.NURSE ---
pt reports productive cough, runny nose, congestion and body aches for 4 days. covid and flu test sent to lab. chest XR done.
[2022-06-15 12:21] LABS: COVID-19 Test Negative (Negative); IDNOW Serial# 08D9AD1C; IDNOW Serial# BCCEAD1C; Influenza A Negative (Negative); Influenza B2 Negative (Negative)
--- NOTE | 2022-06-15 13:14 | ED_ITS ---
HPI - URI/Sore Throat General Chief Complaint: Upper Respiratory Symptoms Stated Complaint: L sided pain when coughing, sick, covid - Time Seen by Provider: 06/15/22 11:27 History of Present Illness HPI Narrative: Patient complains of several days of cough productive of sputum getting worse, no shortness of breath He complains of pain in the left chest wall which began after coughing any felt a pop and sharp pain in the left lateral ribs, he wants to check if he broken rib There is no shortness of breath no wheezing no other chest pain no exertional symptoms no sweating no vomiting no fainting or feeling faint no calf pain or swelling, denies any leg swelling, no vomiting no runny nose no sore throat no diarrhea no dysuria no skin rash Related Data Previous Rx's Medication Instructions Recorded cyclobenzaprine 10 mg tablet 10 mg PO Q8H #20 tabs 04/27/22 oxycodone-acetaminophen 5 mg-325 1 tab PO Q6H PRN pain #20 tabs 04/27/22 mg tablet (Percocet) prednisone 20 mg tablet 40 mg PO DAILY #10 tabs 04/27/22 cyclobenzaprine 5 mg tablet 5 mg PO TID PRN muscle spasm 7 05/07/22 days #21 tabs prednisone 20 mg tablet 20 mg PO DAILY 7 days #7 tabs 05/07/22 albuterol sulfate 90 mcg/actuation 2 puff inhalation Q4-6H PRN 06/15/22 aerosol inhaler shortness of breath or wheezing #8.5 grams azithromycin 250 mg tablet See Rx Instructions PO .COMPLEX #6 06/15/22 (Zithromax Z-Sim) tabs ibuprofen 600 mg tablet 600 mg PO Q6H PRN pain #20 tabs 06/15/22 oxycodone 5 mg tablet 5 mg PO Q6H PRN pain #7 tabs 06/15/22 Allergies Allergy/AdvReac Type Severity Reaction Status Date / Time baclofen Allergy Intermediate Hives Verified 06/15/22 11:34 onion [Onion] Allergy Unknown ITCHING Verified 06/15/22 11:34 SEAFOOD Allergy Unknown ITCHING Uncoded 12/17/19 16:53 [facility] Past Medical History Source: nursing notes reviewed Medical History Asthma Diabetes Social History Social History Alcohol intake: current Alcohol intake frequency: holidays/special occasions only Patient Tobacco Use Status: Never used Tobacco Smoked in Last 30 Days: No Use of substances other than those prescribed or required for medical reasons: No Advance Directives: No Advance Directives Information Provided: Yes Physical Exam Vital Signs: Vital Signs: Last Vital Signs Temp 98.1 F 06/15/22 13:31 Pulse 79 06/15/22 13:31 Resp 18 06/15/22 13:31 BP 121/62 06/15/22 13:31 Pulse Ox 98 06/15/22 13:31 O2 Del Method 06/15/22 13:31 BMI result Body Mass Index 30.7 General appearance no distress no respiratory distress speaking full sentences comfortable appearing Eyes no redness or discharge The pharynx is clear no redness swelling or exudate membranes moist Neck is supple The chest is clear with full symmetric equal breath sounds no adventitious sounds The chest wall head left anterior lateral mid rib tenderness, no crepitus no bruising no deformity Abdomen is soft and nontender no rebound no guarding Extremities full range of motion x4 no calf tenderness or swelling no pedal edema Skin no rash Neuro no focal deficits Course Course Course Narrative: Well-appearing patient with left rib pain after coughing, chest x-ray was negative, COVID test negative, flu test negative, patient is discharged well- appearing and as he has a worsening cough is given prescription for Zithromax for bronchitis Medical Decision Making Lab Data Labs: Lab Results 06/15/22 06/15/22 Range/Units 11:52 11:52 COVID-19 ([facility]) Negative (Negative) COVID-19 Clin Com See Note Influenza Type A ([facility]) Negative (Negative) Influenza Type B ([facility]) Negative (Negative) Influenza A & B Note See Note Discharge Plan Discharge Clinical Impression: Bronchitis Patient Disposition: Home, Self-Care Additional Instructions: Chest x-ray was normal, no evidence of broken where bur punctured lung or pneumonia As cough is worsening I wrote a prescription for antibiotics Zithromax for bronchitis Use Motrin or if needed oxycodone for the rib pain Return any time for shortness of breath any worse condition or any concerns Prescriptions: New albuterol sulfate 90 mcg/actuation HFA aerosol inhaler 2 puff inhalation Q4-6H PRN (Reason: shortness of breath or wheezing) Qty: 8.5 0RF azithromycin [Zithromax Z-Sim] 250 mg tablet See Rx Instructions .ROUTE .COMPLEX Qty: 6 0RF Rx Instructions: For 250 mg dose pack: take 500 mg today (day 1), then 250 mg for 4 days (days 2-5) ibuprofen 600 mg tablet 600 mg PO Q6H PRN (Reason: pain) Qty: 20 0RF oxycodone 5 mg tablet 5 mg PO Q6H PRN (Reason: pain) Qty: 7 0RF Rx Instructions: Partial Fill upon patient request. No Action cyclobenzaprine 10 mg tablet 10 mg PO Q8H Qty: 20 0RF prednisone 20 mg tablet 40 mg PO DAILY Qty: 10 0RF oxycodone-acetaminophen [Percocet] 5-325 mg tablet 1 tab PO Q6H PRN (Reason: pain) Qty: 20 0RF Rx Instructions: Partial Fill upon patient request. cyclobenzaprine 5 mg tablet 5 mg PO TID PRN (Reason: muscle spasm) 7 Days Qty: 21 0RF prednisone 20 mg tablet 20 mg PO DAILY 7 Days Qty: 7 0RF Stand Alone Forms: Work/School Release Interventions: ED Discharge Assessment Last Done: 06/15/22 13:32 Discharge Date/Time: 06/15/22 13:32
[2022-06-15 13:31] VITALS: BP 121/62; PULSE 79; RESP 18; TEMP 36.7; O2SAT 98
== END 2022-06-15 13:32 | disposition home or self-care (01) ==
PROVIDERS: Physician Assistant Medical; Emergency Provider Emergency Medicine
DX: J40 Bronchitis, not specified as acute or chronic (principal); R05.9 Cough, unspecified; R07.89 Other chest pain; Z20.822 Contact with and (suspected) exposure to COVID-19; Z20.828 Contact with and (suspected) exposure to other viral communicable diseases; Z79.899 Other long term (current) drug therapy
CPT/HCPCS: 71046; 87502; 87635; 99283; 99284

== ENCOUNTER 2022-08-09 13:25 | Emergency (ER) | payer OTHER, SELFPAY ==
[2022-08-09 13:37] VITALS: BP 106/63; PULSE 70; RESP 20; TEMP 35.8; O2SAT 97; BMI 32.5
--- NOTE | 2022-08-09 13:57 | PC.NURSE ---
pt taking ABX and tylenol/ibuprofin for wisdom tooth pain. Previously took tramadol but caused pt to vomit. Pt reports that OTC pain meds are not helping his pain.
--- NOTE | 2022-08-09 14:19 | ED_ITS ---
HPI - General Adult General Chief complaint: General Medical Stated complaint: L side tooth ache Time Seen by Provider: 08/09/22 13:50 Source: patient Mode of arrival: ambulatory History of Present Illness HPI narrative: 42-year-old male visiting from [place] with dental caries and a toothache on the left upper but denies any swallowing or breathing difficulties and denies any fevers or chills. Patient is currently on Augmentin, twice a day, this was started last Saturday. Patient states that he is still having discomfort but denies any drainage. Related Data Previous Rx's Medication Instructions Recorded cyclobenzaprine 10 mg tablet 10 mg PO Q8H #20 tabs 04/27/22 oxycodone-acetaminophen 5 mg-325 1 tab PO Q6H PRN pain #20 tabs 04/27/22 mg tablet (Percocet) prednisone 20 mg tablet 40 mg PO DAILY #10 tabs 04/27/22 cyclobenzaprine 5 mg tablet 5 mg PO TID PRN muscle spasm 7 05/07/22 days #21 tabs prednisone 20 mg tablet 20 mg PO DAILY 7 days #7 tabs 05/07/22 albuterol sulfate 90 mcg/actuation 2 puff inhalation Q4-6H PRN 06/15/22 aerosol inhaler shortness of breath or wheezing #8.5 grams azithromycin 250 mg tablet See Rx Instructions PO .COMPLEX #6 06/15/22 (Zithromax Z-Sim) tabs oxycodone 5 mg tablet 5 mg PO Q6H PRN pain #7 tabs 06/15/22 ketorolac 10 mg tablet 10 mg PO Q6H PRN pain 5 days #20 08/09/22 tabs Allergies Allergy/AdvReac Type Severity Reaction Status Date / Time baclofen Allergy Intermediate Hives Verified 06/15/22 11:34 onion [Onion] Allergy Unknown ITCHING Verified 06/15/22 11:34 SEAFOOD Allergy Unknown ITCHING Uncoded 12/17/19 16:53 Review of Systems Review of Systems: Pertinent positives and negatives as stated in HPI PMF Past Medical History Source: nursing notes reviewed Medical History Asthma Diabetes Social History Social History Alcohol intake: never Patient Tobacco Use Status: Never used Tobacco Smoked in Last 30 Days: No Use of substances other than those prescribed or required for medical reasons: No Advance Directives: No Physical Exam ED Vital Signs: Vital Signs - 24 hr 08/09/22 13:37 Temperature 96.5 F L Pulse Rate 70 Respiratory Rate 20 Blood Pressure 106/63 Pulse Oximetry 97 Oxygen Delivery Method Room Air BMI result Body Mass Index 32.5 VITAL SIGNS: Reviewed. GENERAL: Well developed, well nourished, in no acute distress. HEAD: Normocephalic/atraumatic EYES: PERRLA, EOMI EARS: Ext canals without abnormality, TMs non-bulging and non-erythematous NOSE: Nares patent bilateral OROPHARYNX: no oral lesions noted, posterior pharynx clear, multiple dental caries, the specific to appears to be cracked all the way down to the gumline without gingival swelling, no drainage, no trismus, no left maxillary or mandibular swelling NECK: Supple, no adenopathy LUNGS: Normal breath sounds. No adventitious sounds or accessory muscle use. SpO2<97> CARDIOVASCULAR: Regular rate and rhythm without noted murmurs ABDOMEN: Soft, non-tender, non-distended with bowel sounds. MUSCULOSKELETAL: No tenderness, deformities, or effusions noted on gross inspection. EXTREMITIES: No cyanosis, clubbing or edema. SKIN: Inspection of the skin reveals no rashes NEUROLOGIC: Alert and oriented x 4. Strength and sensation to light touch were grossly intact x 4. Medical Decision Making Medical Decision Making MDM Narrative: 42-year-old male with history and clinical presentation consistent with multiple dental caries, currently on Augmentin twice daily which will continue through tomorrow. Patient is afebrile and on my examination there is no evidence of acute abscess or cheek/oral swelling. Patient had changed from ibuprofen over to Toradol. And discharged in stable condition. Differential Diagnosis Please see the discussion above Discharge Plan Discharge Clinical Impression: Pain, dental, Dental caries Patient Disposition: Home, Self-Care Instructions: Toothache (ED), Mouth Care (ED) Additional Instructions: 1. Resume all home medications as prescribed. Specifically, complete the entire course of antibiotics as ordered. STOP Ibuprofen 2. Tylenol 1000 mg, orally, every 6 hours as needed for pain control. Do not exceed 4000 mg within 24 hours. You may take the Tylenol with the ketorolac (Toradol). 3. Please additional use ice to unexposed skin for additional symptom relief. 4. Follow-up with your dentist as soon as possible. Return to the ER for any worsening symptoms. Prescriptions: New ketorolac 10 mg tablet 10 mg PO Q6H PRN (Reason: pain) 5 Days Qty: 20 0RF Rx Instructions: Patient received Toradol in the emergency room. Discontinued ibuprofen 600 mg tablet 600 mg PO Q6H PRN (Reason: pain) Qty: 20 0RF No Action cyclobenzaprine 10 mg tablet 10 mg PO Q8H Qty: 20 0RF prednisone 20 mg tablet 40 mg PO DAILY Qty: 10 0RF oxycodone-acetaminophen [Percocet] 5-325 mg tablet 1 tab PO Q6H PRN (Reason: pain) Qty: 20 0RF Rx Instructions: Partial Fill upon patient request. cyclobenzaprine 5 mg tablet 5 mg PO TID PRN (Reason: muscle spasm) 7 Days Qty: 21 0RF prednisone 20 mg tablet 20 mg PO DAILY 7 Days Qty: 7 0RF albuterol sulfate 90 mcg/actuation HFA aerosol inhaler 2 puff inhalation Q4-6H PRN (Reason: shortness of breath or wheezing) Qty: 8.5 0RF azithromycin [Zithromax Z-Sim] 250 mg tablet See Rx Instructions .ROUTE .COMPLEX Qty: 6 0RF Rx Instructions: For 250 mg dose pack: take 500 mg today (day 1), then 250 mg for 4 days (days 2-5) oxycodone 5 mg tablet 5 mg PO Q6H PRN (Reason: pain) Qty: 7 0RF Rx Instructions: Partial Fill upon patient request.
[2022-08-09] MEDS: Ketorolac Tromethamine 15 MG/ML VIAL IM (14:32)
== END 2022-08-09 14:38 | disposition home or self-care (01) ==
PROVIDERS: Emergency Provider Student in an Organized Health Care Education/Training Program
DX: K02.9 Dental caries, unspecified (principal); Z79.899 Other long term (current) drug therapy
CPT/HCPCS: 96372; 99284; J1885